=== PATIENT | male | born 1980 | race Two or more races ===

== ENCOUNTER 2019-03-01 23:26 | Emergency (ER) | payer MEDICAID ==
[~2019-03-01] VITALS: Ht 177.8 cm; Wt 113.4 kg
[2019-03-01] MEDS ORDERED: ACETAMINOPHEN 325 MG TAB PO ONE (23:45)
[2019-03-02 01:09] VITALS: BP 162/88
[2019-03-02] MEDS ORDERED: IBUPROFEN 800 MG TAB PO ONE (03:00)
[2019-03-02] MEDS ORDERED: cefTRIAXone SOD 1,000 MG VL IM ONE (03:00)
== END 2019-03-02 03:22 | disposition home or self-care (01) ==
LOC: ER 23:29
DX: J02.9 Acute pharyngitis, unspecified (principal)
CPT/HCPCS: 96372; 99283; J0696

== ENCOUNTER 2019-03-03 00:14 | Emergency (ER) | payer MEDICAID ==
[~2019-03-03] VITALS: Ht 177.8 cm; Wt 113.4 kg
[2019-03-03 01:54] VITALS: BP 157/80
[2019-03-03] MEDS ORDERED: NYSTATIN (MOUTH-THROAT) 500,000 UNITS/5 ML SUSP MT ONE (03:00)
[2019-03-03] MEDS ORDERED: DexAMETHasone SOD PHOS 10MG/1ML VIAL INJ IM ONE (03:00)
== END 2019-03-03 03:47 | disposition home or self-care (01) ==
LOC: ER 00:17
DX: H65.93 Unspecified nonsuppurative otitis media, bilateral (principal)
CPT/HCPCS: 96372; 99283; J1100